=== PATIENT | male | born 1990 | race Caucasian/White ===

== ENCOUNTER 2018-09-04 14:34 | Emergency (ER) | payer SELFPAY ==
[~2018-09-04] VITALS: Ht 180.3 cm; Wt 86.2 kg
[2018-09-04 14:40] VITALS: BP 125/75
[2018-09-04 15:30] VITALS: BP 107/65
== END 2018-09-04 15:30 | disposition home or self-care (01) ==
LOC: MED 14:34
DX: F10.129 Alcohol abuse with intoxication, unspecified (principal)
CPT/HCPCS: 99283